=== PATIENT | female | born 1950 | race Caucasian/White ===

== ENCOUNTER 2017-09-15 08:54 | Emergency (ER) | payer MEDICARE, SELFPAY ==
[2017-09-15 09:15] VITALS: BP 144/92; PULSE 107; RESP 20; TEMP 36.8; O2SAT 96; BMI 35.9
--- NOTE | 2017-09-15 09:22 | HMH.EDUTC ---
[facility] [place] Clinical Impression: URI (upper respiratory infection) Qualifiers: URI type: unspecified URI Qualified Code(s): J06.9 - Acute upper respiratory infection, unspecified Disposition: Home, Self-Care Condition on Discharge: Good Instructions: Sore Throat Additional Instructions: * Monitor Temp. Tylenol and/or Ibuprofen as needed. ER if fever is no less than 101 despite alternating Tylenol and Ibuprofen * Encourage fluids, water, Gatorade, powerade, pedialyte if /toddler/or child * Warm salt water gargles for throat irritation *Warm fluids *Sore throat lozenges *Sleep elevated *humidifier or vaporizer Lots of rest Increase fluids, water, Gatorade, powerade *Your throat swab was sent to lab for culture. Those results area typically sent to your primary care physician. Be sure to follow up in 2-3 days if no improvement so they can review those results and treat if necessary If you dont have primary care I recommend you get one, but in the mean time you will have to return to a walk in clinic Follow up IMMEDIATELY for new or worsening of symptoms OR no noticeable improvement over the next 48-72 hours. 911 immediately for any life threatening symptoms such as chest pain or difficulty breathing Prescriptions: Azithromycin [Z-Mario 250mg Tab] 250 mg PO UD DOSE PK #6 tab Fluticasone Propionate [Flonase 50mcg nasal spray 16gm] 2 spr NS DAILY #1 bottle Referrals: Brandon Knox MD [Primary Care Provider] - Time of Disposition: 09:31 Medical Decision Making - Medical Records Medical records reviewed: Yes: I reviewed the patient's medical records. Vital Signs: 09/15/17 09:15 Temperature 98.2 F Temperature Source Temporal Artery Scan Pulse Rate [Right Brachial] 107 H Respiratory Rate 20 Blood Pressure [Right Arm] 144/92 Blood Pressure Mean [Right Arm] 109 Blood Pressure Source [Right Arm] Automatic Cuff Blood Pressure Position [Right Arm] Sitting 02 Sat by Pulse Oximetry 96 Oxygen Delivery Method Room Air - Lab Data Lab results reviewed: Yes: I reviewed the patient's lab results. - Manuel Inquiry Pt receiving controlled substance: No Manuel was queried for this patient: No [facility] [place] - General Stated complaint: Sore Throat Mode of Arrival: Family Vehicle Source of Information: Patient Limitations: No Limitations Description of Symptoms (Recalled from Triage Doc. by RN): c/o sore throat positive flu a on sunday HEENT Symptoms (Recalled from RN notes): Yes (sore throat) Resp Symptoms (Recalled from RN notes): Yes Skin Symptoms (Recalled from RN notes): No MS Symptoms (Recalled from RN notes): No Functional Status (Recalled from RN notes): n/a - History of Present Illness Provider Complaint: Patient state that she tested positive for the flu on Sunday State that they also checked her for strep throat because her throat was so sore State that her test on Sunday was negative but her throat has continued to get worse State that now her throat is more red, and irritated state that she is also feeling pressure like feeling in her ears - Related Data Home Medications Medication Instructions Recorded Confirmed Amlodipine Besylate/Benazepril 1 tab PO DAILY 09/15/17 09/15/17 [Amlodipine-Benazepril 5-40 mg] Aspirin [Aspirin 81mg EC Tab] 81 mg PO DAILY 09/15/17 09/15/17 Calcium Carb, Citrate/Vit D3 1 each PO DAILY 09/15/17 09/15/17 [Calcium + D3 ER Tablet] Cyclobenzaprine HCl [Flexeril 10mg 10 mg PO BID 09/15/17 09/15/17 tablet] Empagliflozin [Jardiance] 1 tab PO DAILY 09/15/17 09/15/17 Fexofenadine/Pseudoephedrine 1 each PO DAILY 09/15/17 09/15/17 [Yin-D 24 Hour Tablet] Fluticasone Propionate 1 spray NOSTRIL-B DAILY 09/15/17 09/15/17 Levothyroxine Sodium 75 mcg PO DAILY 09/15/17 09/15/17 [Levothyroxine 75mcg (0.075mg) Tab] Magnesium 250 mg PO DAILY 09/15/17 09/15/17 Meloxicam [Meloxicam] 1 tab PO DAILY 09/15/17 09/15/17 Pravastatin Sodium [Pravastatin 80 mg PO JULIETA
[2017-09-15 09:24] LABS: UTC Strep Screen (Rapid) Negative (Negative)
--- NOTE | 2017-09-15 09:25 | ED_ITS ---
[facility] – [place] Clinical Impression: URI (upper respiratory infection) Qualifiers: URI type: unspecified URI Qualified Code(s): J06.9 - Acute upper respiratory infection, unspecified Disposition: Home, Self-Care Condition on Discharge: Good Instructions: Sore Throat Additional Instructions: * Monitor Temp. Tylenol and/or Ibuprofen as needed. ER if fever is no less than 101 despite alternating Tylenol and Ibuprofen * Encourage fluids, water, Gatorade, powerade, pedialyte if /toddler/or child * Warm salt water gargles for throat irritation *Warm fluids *Sore throat lozenges *Sleep elevated *humidifier or vaporizer Lots of rest Increase fluids, water, Gatorade, powerade *Your throat swab was sent to lab for culture. Those results area typically sent to your primary care physician. Be sure to follow up in 2-3 days if no improvement so they can review those results and treat if necessary If you don? t have primary care I recommend you get one, but in the mean time you will have to return to a walk in clinic Follow up IMMEDIATELY for new or worsening of symptoms OR no noticeable improvement over the next 48-72 hours. 911 immediately for any life threatening symptoms such as chest pain or difficulty breathing Prescriptions: Azithromycin [Z-Mario 250mg Tab] 250 mg PO UD DOSE PK #6 tab Fluticasone Propionate [Flonase 50mcg nasal spray 16gm] 2 spr NS DAILY #1 bottle Referrals: Brandon Knox MD [Primary Care Provider] - Time of Disposition: 09:31 Medical Decision Making - Medical Records Medical records reviewed: Yes: I reviewed the patient's medical records. Vital Signs: 09/15/17 09:15 Temperature 98.2 F Temperature Source Temporal Artery Scan Pulse Rate [Right Brachial] 107 H Respiratory Rate 20 Blood Pressure [Right Arm] 144/92 Blood Pressure Mean [Right Arm] 109 Blood Pressure Source [Right Arm] Automatic Cuff Blood Pressure Position [Right Arm] Sitting 02 Sat by Pulse Oximetry 96 Oxygen Delivery Method Room Air - Lab Data Lab results reviewed: Yes: I reviewed the patient's lab results. - Manuel Inquiry Pt receiving controlled substance: No Manuel was queried for this patient: No [facility] [place] H[place] - General Stated complaint: Sore Throat Mode of Arrival: Family Vehicle Source of Information: Patient Limitations: No Limitations Description of Symptoms (Recalled from Triage Doc. by RN): c/o sore throat positive flu a on sunday HEENT Symptoms (Recalled from RN notes): Yes (sore throat) Resp Symptoms (Recalled from RN notes): Yes Skin Symptoms (Recalled from RN notes): No MS Symptoms (Recalled from RN notes): No Functional Status (Recalled from RN notes): n/a - History of Present Illness Provider Complaint: Patient state that she tested positive for the flu on Sunday State that they also checked her for strep throat because her throat was so sore State that her test on Sunday was negative but her throat has continued to get worse State that now her throat is more red, and irritated state that she is also feeling pressure like feeling in her ears - Related Data Home Medications Medication Instructions Recorded Confirmed Amlodipine Besylate/Benazepril 1 tab PO DAILY 09/15/17 09/15/17 [Amlodipine-Benazepril 5-40 mg] Aspirin [Aspirin 81mg EC Tab] 81 mg PO DAILY 09/15/17 09/15/17 Calcium Carb, Citrate/Vit D3 1 each PO DAILY 09/15/17 09/15/17 [Calcium + D3 ER Tablet] Cycl
[2017-09-15 09:36] VITALS: BP 140/90; PULSE 100; RESP 20; TEMP 36.6; O2SAT 97
== END 2017-09-15 09:37 | disposition home or self-care (01) ==
PROVIDERS: Emergency Provider Nurse Practitioner; Family Provider Internal Medicine Adolescent Medicine; PCP Family Medicine
DX: J06.9 Acute upper respiratory infection, unspecified (principal); J10.1 Influenza due to other identified influenza virus with other respiratory manifestations; Z79.899 Other long term (current) drug therapy; Z79.82 Long term (current) use of aspirin; Z88.6 Allergy status to analgesic agent; E11.9 Type 2 diabetes mellitus without complications
CPT/HCPCS: G0463; 87880; 99202

== ENCOUNTER 2020-05-24 15:32 | Emergency (ER) | payer MEDICARE, SELFPAY ==
[2020-05-24 15:50] VITALS: BP 142/72; PULSE 78; RESP 19; TEMP 36.9; O2SAT 99; BMI 33.3
--- NOTE | 2020-05-24 15:58 | HMH.EDUTC ---
[facility] [place] Clinical Impression: Cellulitis of right hand Disposition: Home, Self-Care Condition on Discharge: Good Instructions: DI for Cellulitis -- Adult, Cellulitis Additional Instructions: Take the medications as directed. Follow up with your primary care physician. GO TO THE ER FOR ANY WORSENING SYMPTOMS, ESPECIALLY FEVER AND CHILLS. Prescriptions: Sulfamethoxazole/Trimethoprim [Bactrim DS tablet] 1 each PO BID 10 Days #20 tab Transmission Status: Received by [facility] Referrals: Brandon Knox MD [Primary Care Provider] - Time of Disposition: 16:35 Medical Decision Making - Medical Records Medical records reviewed: No: I reviewed the patient's medical records. - Manuel Inquiry Pt receiving controlled substance: No Vital Signs: 05/24/20 15:50 05/24/20 16:38 Temperature 98.4 F 98.4 F Temperature Source Oral Pulse Rate 78 Pulse Rate [Right Brachial] 78 Respiratory Rate 19 19 Blood Pressure 142/72 H Blood Pressure [Right Arm] 142/72 H Blood Pressure Mean [Right Arm] 95 Blood Pressure Source [Right Arm] Automatic Cuff Blood Pressure Position [Right Arm] Sitting 02 Sat by Pulse Oximetry 99 Oxygen Delivery Method Room Air [facility] [place] - General Stated complaint: Pain in R Hand (no accident) Time Seen by Provider: 05/24/20 15:58 - History of Present Illness Provider Complaint: She c/o left hand pain, redness and swelling since yesterday. She denies any injury. - Related Data Home Medications Medication Instructions Recorded Confirmed Amlodipine Besylate/Benazepril 1 tab PO DAILY 09/15/17 09/15/17 [Amlodipine-Benazepril 5-40 mg] Aspirin [Aspirin 81mg EC Tab] 81 mg PO DAILY 09/15/17 09/15/17 Calcium Carb, Citrate/Vit D3 1 each PO DAILY 09/15/17 09/15/17 [Calcium + D3 ER Tablet] Cyclobenzaprine HCl [Flexeril 10mg 10 mg PO BID 09/15/17 09/15/17 tablet] Empagliflozin [Jardiance] 1 tab PO DAILY 09/15/17 09/15/17 Fexofenadine/Pseudoephedrine 1 each PO DAILY 09/15/17 09/15/17 [Yin-D 24 Hour Tablet] Fluticasone Propionate 1 spray NOSTRIL-B DAILY 09/15/17 09/15/17 Levothyroxine Sodium 75 mcg PO DAILY 09/15/17 09/15/17 [Levothyroxine 75mcg (0.075mg) Tab] Magnesium 250 mg PO DAILY 09/15/17 09/15/17 Meloxicam 1 tab PO DAILY 09/15/17 09/15/17 Pravastatin Sodium 80 mg PO DAILY 09/15/17 09/15/17 Sitagliptin Phos/Metformin HCl 1 tab PO DAILY 09/15/17 09/15/17 [Janumet 50-500 mg Tablet] glyBURIDE [Diabeta 5mg tablet] 5 mg PO DAILY 09/15/17 09/15/17 hydroCHLOROthiazide [HCTZ 12.5mg 1 tab PO DAILY 09/15/17 09/15/17 capsule] Previous Rx's Medication Instructions Recorded Azithromycin [Z-Mario 250mg Tab*] 250 mg PO UD DOSE PK #6 tab 09/15/17 Fluticasone Propionate [Flonase 2 spr NS DAILY #1 bottle 09/15/17 50mcg nasal spray 16gm] Sulfamethoxazole/Trimethoprim 1 each PO BID 10 Days #20 tab 05/24/20 [Bactrim DS tablet] Allergies Allergy/AdvReac Type Severity Reaction Status Date / Time acetaminophen [From Percocet] Allergy Verified 09/15/17 09:20 oxycodone [From Percocet] Allergy Verified 09/15/17 09:20 adhesive tape AdvReac Verified 09/15/17 09:20 diazepam [From Valium] AdvReac Verified 09/15/17 09:20 [facility] History - Hepatitis A Screen Attestation statement:: This patient has been screened for Hepatitis A risk factors. I have reviewed the patient's past medical history: Yes Medical History: Reports:: Diabetes Mellitus Type 2 Denies:: Cancer, Diabetes Mellitus Type 1, Internal Pacemaker, MRSA Other Surgeries: No: Pacemaker Amputation: No Fractures: No - Social History Alcohol Intake: never ROS Obtained: Yes All systems reviewed & no additional complaints - Constitutional Constitutional: Denies chills, Denies fever(s) - Eyes Eyes: Denies eye discharge - ENT Ears, Nose, Mouth, and Throat: Denies dizziness, Denies otalgia, Denies sore throat - Musculoskeletal Musculoskeletal: Reports as pe
--- NOTE | 2020-05-24 16:05 | XR_ITS ---
PROCEDURE: XR HAND RT MIN 3V CLINICAL INDICATION: PAIN COMPARISON: No exams were available for comparison FINDINGS: No fracture or dislocation. No lytic or blastic change. There is normal mineralization. The joint spaces are well-preserved. No significant degenerative/arthritic changes. No erosive changes evident. Other findings:Soft tissue calcification is present along the dorsal aspect of the 5th metacarpal carpal joint. IMPRESSION: Soft tissue calcification along the dorsal aspect of the 5th metacarpal carpal joint otherwise negative Dictated by: Kenny Magallanes MD 05/24/2020 16:26 Kenny Magallanes MD in [place] 05/24/2020 16:26
[2020-05-24 16:38] VITALS: BP 142/72; PULSE 78; RESP 19; TEMP 36.9; O2SAT 99
== END 2020-05-24 16:44 | disposition home or self-care (01) ==
PROVIDERS: Emergency Provider Nurse Practitioner Family; PCP Family Medicine
DX: L03.113 Cellulitis of right upper limb (principal); E11.9 Type 2 diabetes mellitus without complications; Z88.5 Allergy status to narcotic agent; Z79.899 Other long term (current) drug therapy
CPT/HCPCS: G0463; 73130; 99201

== ENCOUNTER → 2021-07-21 10:52 | Outpatient (CLI) | payer MEDICARE, SELFPAY | PROVIDERS: PCP Family Medicine; Visit Provider Nurse Practitioner | DX: U07.1 COVID-19 (principal) | CPT/HCPCS: C9803; U0003; U0005 ==

== ENCOUNTER 2024-03-04 15:35 | Emergency (ER) | payer MEDICARE, SELFPAY ==
--- NOTE | 2024-03-04 16:12 | XR_ITS ---
PROCEDURE INFORMATION: Exam: XR Right Knee Exam date and time: 03/04/2024 4:06 PM Age: 73 years old Clinical indication: Injury or trauma; Fall; Blunt trauma; Knee; Right; Additional info: Fell in shower, pain TECHNIQUE: Imaging protocol: Radiologic exam of the right knee. Views: 3 views. COMPARISON: No relevant prior studies available. FINDINGS: Bones/joints: No evidence of acute fracture or malalignment. No significant knee joint effusion. Atherosclerotic calcifications noted in the popliteal artery/popliteal fossa. Moderate tricompartmental degenerative osteoarthrosis with hypertrophic marginal osteophytosis, as well as joint space narrowing in the medial compartment. Patellar enthesopathy. Soft tissues: Unremarkable. IMPRESSION: 1. No evidence of acute osseous abnormality in the right knee. 2. Moderate tricompartmental degenerative osteoarthrosis. 3. Patellar enthesopathy.
[2024-03-04 16:40] VITALS: BP 124/83; PULSE 82; RESP 19; TEMP 36.6; O2SAT 98; BMI 32.3
--- NOTE | 2024-03-04 16:47 | EXP.UTC ---
Discharge Plan Disposition Patient Disposition: Home, Self-Care Condition: Good Prescriptions Prescriptions: New (DME) cane Device See Rx Instructions .Route Qty: 1 0RF Rx Instructions: As directed No Action sulfamethoxazole-trimethoprim 1 EACH tablet 1 each PO BID 10 Days Qty: 20 0RF cyclobenzaprine 10 MG tablet 10 mg PO BID glyburide 5 MG tablet 5 mg PO DAILY Patient Comments: TAKE 1 TABLET BY MOUTH 2 TIMES A DAY meloxicam 15 MG tablet 1 tab PO DAILY Patient Comments: aspirin 81 MG tablet,delayed release (DR/EC) 81 mg PO DAILY levothyroxine 75 MCG tablet 75 mcg PO DAILY Patient Comments: pravastatin 80 MG tablet 80 mg PO DAILY Patient Comments: TAKE 1 TABLET BY MOUTH EVERY DAY hydrochlorothiazide 12.5 MG capsule 1 tab PO DAILY Patient Comments: TAKE ONE CAPSULE BY MOUTH EVERY DAY magnesium 250 MG tablet 250 mg PO DAILY fluticasone propionate 16 GM spray,suspension 1 spray NOSTRIL-B DAILY Patient Comments: fexofenadine-pseudoephedrine [Yin-D 24 Hour] 1 EACH tablet extended release 24 hr 1 ea PO DAILY amlodipine-benazepril 1 EACH capsule 1 tab PO DAILY Patient Comments: sitagliptin phos-metformin [Janumet] 50MG-500MG tablet 1 tab PO DAILY Patient Comments: calcium carb and citrate-vitD3 1 EACH tablet extended release 1 ea PO DAILY empagliflozin [Jardiance] 25 MG tablet 1 tab PO DAILY Patient Comments: azithromycin 250 MG tablet 250 mg PO UD DOSE PK Qty: 6 0RF Rx Instructions: Take two (2) tablets today, then one (1) tablet days #2 thru #5 fluticasone propionate 120 SPR/BOT bottle 2 spr NS DAILY Qty: 1 0RF Referrals Follow up/Referrals: Vega Haley DO [Staff Physician] - See instructions (call office for appointment) Brandon Knox MD [Primary Care Provider] - See instructions Activity Restrictions/Add. Instructions Additional Instructions/Restrictions: *weight bearing as tolerated *RICE, Rest the extremity, Ice 15-20 minutes 3-4 times daily, Compress- wear the ishmael wrap as discussed as much as possible to help reduce swelling and pain, Elevate the extremity when at rest *Ishmael wrap is for support and help control swelling, use it except in the shower. Be sure that is not to tight but not to loose either *Elevate when resting? *Ibuprofen 600-800mg every 6-8 hours as needed for pain an inflammation if you can take it. If need something more can take Tylenol in between doses of Ibuprofen to help if you can take that also Immediately follow up with your family doctor for new or worsening of symptoms, or no noticeable improvement over the next 3-5 days Clinical Impressions Clinical Impression: Contusion of knee Qualifiers: Encounter type: initial encounter Laterality: right Qualified Code(s): S80.01XA - Contusion of right knee, initial encounter Instructions Patient Instructions: DI for Contusion, DI for Knee Pain Print Language Print Language: Moldovan Discharge ED Provider: Carmelina Parson [facility] [place] H[place] General Stated complaint: right knee is swollen and painful Time Seen by Provider: 03/04/24 16:47 History of Present Illness Provider Complaint: Patient state that she was out of town over the weekend and she fell and landed on her right knee states that since then it has been bruised, swollen and painful when she walks on it States today the bruising was looking worse so she came in to get it checked denies any other injury Related Data Home Medications ?Medication ?Instructions ?Recorded ?Confirmed amlodipine 5 mg-benazepril 40 mg 1 tab PO DAILY htn 09/15/17 09/15/17 capsule aspirin 81 mg tablet,delayed 81 mg PO DAILY Blood thinner 09/15/17 09/15/17 release calcium carb,cit ER 600 mg-vit D3 1 ea PO DAILY Supplement 09/15/17 09/15/17 12.5 mcg (500 unit) tablet,ext.rel cyc
[2024-03-04 17:09] VITALS: BP 124/83; PULSE 82; RESP 19; TEMP 36.6; O2SAT 98
== END 2024-03-04 17:13 | disposition home or self-care (01) ==
PROVIDERS: Emergency Provider Nurse Practitioner; PCP Family Medicine
DX: S80.01XA Contusion of right knee, initial encounter (principal); M25.561 Pain in right knee; W19.XXXA Unspecified fall, initial encounter
CPT/HCPCS: 73562; 99204; 99212; G0463